=== PATIENT | female | born 1945 | race Hispanic/Latino ===

== ENCOUNTER 2019-01-22 10:39 | Emergency (ER) | payer OTHER ==
[2019-01-22] MEDS ORDERED: dexAMETHasone 10 MG/ML VIAL ONE (10:54)
[2019-01-22] MEDS ORDERED: ONDANSETRON 4 MG/2 ML VIAL ONE (10:54)
[2019-01-22] MEDS ORDERED: MORPHINE 4 MG/ML SYR ONE (10:54)
[2019-01-22] MEDS ORDERED: NA CHLORIDE 0.9% 500 ML ONE (10:54)
[2019-01-22 11:23] LABS: Absolute Lymphocytes (CBC) 1.5 K/uL (0.7-4.9); Basophils % 0.4 % (0-1.3); Hematocrit 35.4 % (36.0-45.0); Lymphocytes % 28.6 % (15.3-44.8); MPV 10.2 fL (7.6-11.3); RBC Red Blood Cell Count 4.03 M/uL (3.86-4.86)
[2019-01-22 11:31] LABS: Albumin 4.2 g/dL (3.4-5.0); Bilirubin Direct 0.2 mg/dL (0-0.2); Bilirubin Total 0.5 mg/dL (0.2-1.0); Potassium 3.5 mmol/L (3.5-5.1); Protein, Total 8.5 g/dL (6.4-8.2)
--- NOTE | 2019-01-22 12:05 | RAD REPORT ---
EXAM DESCRIPTION: CT - Angio Aorta For Dissection - 01/22/2019 11:52 am CLINICAL HISTORY: Chest pain radiating to the back. bilateral flank pain COMPARISON: No comparisons TECHNIQUE: CT angiography of the aorta was performed with MIPs. All CT scans are performed using dose optimization technique as appropriate and may include automated exposure control or mA/KV adjustment according to patient size. FINDINGS: A left aortic arch is present with normal branching pattern of the great vessels.No acute aortic finding is seen such as aneurysm, penetrating ulcer or dissection. The celiac axis, SMA, BARBARA and renal arteries are widely patent. No evidence of pulmonary embolism. The lungs are mildly emphysematous but clear. Moderate hiatal hernia. Mild diffuse fatty liver.The spleen, pancreas, adrenal glands and kidneys are within normal limits fo r arterial phase imaging. No bowel obstruction, free fluid or abscess.No pathologic enlarged lymphadenopathy identified. Moderate degenerative anterolisthesis L4 on 5. IMPRESSION: No acute aortic finding is demonstrated.
--- NOTE | 2019-01-22 12:15 | ER ---
Nurse's Notes [facility] Name: Kely Smith Age: 73 yrs Sex: Female : 1945 Arrival Date: 01/22/2019 Time: 10:40 Bed 2 Private MD: Diagnosis: Radiculopathy, lumbosacral region;Zoster [herpes zoster] Presentation: 01/22 10:43 Presenting complaint: Patient states: Pain for 2-3 days on back radiating around the la1 right flank area. Transition of care: patient was not received from another setting of care. Onset of symptoms was January 22, 2019. Risk Assessment: Do you want to hurt yourself or someone else? Patient reports no desire to harm self or others. Initial Sepsis Screen: Does the patient have a suspected source of infection?. Care prior to arrival: None. 10:43 Acuity: SALAS 2 la1 10:43 Method Of Arrival: Wheelchair la1 Historical: - Allergies: 10:43 No Known Allergies; la1 - PMHx: 10:43 Diabetes - NIDDM; Hypertension; High Cholesterol; la1 10:50 Atrial Fib; ch - Immunization history:: Adult Immunizations up to date. - Social history:: Smoking status: Patient/guardian denies using tobacco. - Ebola Screening: : No symptoms or risks identified at this time. - Family history:: not pertinent. - Hospitalizations: : No recent hospitalization is reported. Screenin:50 Abuse screen: Denies threats or abuse. Denies injuries from another. Nutritional jl7 screening: No deficits noted. Tuberculosis screening: No symptoms or risk factors identified. Fall Risk IV access (20 points). Total Vital Fall Scale indicates No Risk (0-24 pts). Assessment: 10:50 General: Appears in no apparent distress. uncomfortable, Behavior is cooperative, jl7 anxious. Pain: Complains of pain in left mid back Pain radiates to left leg Pain currently is 10 out of 10 on a pain scale. Quality of pain is described as radiating, sharp, shooting, Pain began 2-3 days ago. Is continuous. Pain: Complains of pain in right upper quadrant and left upper quadrant Pain does not radiate. Pain currently is 10 out of 10 on a pain scale. Quality of pain is described as pressure, Pain began suddenly, Is continuous. Neuro: Level of Consciousness is awake, alert, obeys commands, Oriented to person, place, time, situation. Neuro: Cardiovascular: Denies chest pain, shortness of breath, Patient's skin is warm and dry. Rhythm is irregular. Respiratory: Airway is patent Respiratory effort is even, unlabored, Respiratory pattern is regular, symmetrical. GI: Abdomen is round non-distended, Bowel sounds present X 4 quads. Abd is soft and non tender X 4 quads. Derm: Skin is pink, warm \T\ dry. Musculoskeletal: Reports pain in left leg and left mid back. 11:20 Reassessment: Patient is alert, oriented x 3, equal unlabored respirations, skin jl7 warm/dry/pink. Patient states feeling better. Patient states symptoms have improved. Pain: Complains of pain in left leg and left mid back Pain currently is 6 out of 10 on a pain scale. Pain: Complains of pain in right upper quadrant and left upper quadrant Pain currently is 0 out of 10 on a pain scale. 12:20 Reassessment: Dr. Riley at bedside discussing results and plan of care. jl7 Vital Signs: 10:42 Pulse 160; Resp 22; Temp 97.6; Pulse Ox 100% on R/A; Weight 72.57 kg; la1 10:43 BP 160 / 130; la1 10:50 BP 140 / 101; Pulse 165; Resp 22 S; Pulse Ox 98% on R/A; Pain 10/10; jl7 11:07 BP 145 / 85 LA; Pulse 107; Resp 19 S; Pulse Ox 98% on R/A; Pain 9/10; jl7 11:40 BP 151 / 69; Pulse 100; Resp 17 S; Pulse Ox 99% on R/A; Pain 6/10; jl7 12:30 BP 149 / 70; Pulse 101; Resp 19 S; Pulse Ox 100% on R/A; jl7 ED Course: 10:40 Patient arrived in ED. as 10:43 Triage completed. la1 10:43 Arm band placed on left wrist. la1 10:47 Chauncey Riley MD is Attending Physician. rn 10:48 Yisel Huff RN is Primary Nurse. jl7 10:50 Patient has correct armband on for positive identification. Placed in gown. Bed in low jl7 position. Call light in reach. Side rails up X 1. monitor tech on. Pulse ox on. NIBP on. Warm blanket given. 10:56 Inserted saline lock: 20 gauge in right antecubital area, using aseptic technique. jl7 Blood collected. 10:56 EKG done, by ED staff, reviewed by Chauncey Riley MD. em1 10:56 Initial lab(s) drawn, by me, sent to lab. jl7 11:00 Radiology exam delayed due to lab results not completed at this time. (BUN/Creatinine). kw1 11:48 CT completed. Patient tolerated procedure well. Patient moved back from CT. bq 11:52 CT Aorta for Dissection In Process Unspecified. EDMS 12:40 No provider procedures requiring assistance completed. IV discontinued, intact, jl7 bleeding controlled, No redness/swelling at site. Pressure dressing applied. Administered Medications: 11:00 Drug: Zofran 4 mg Route: IVP; Site: right antecubital; jl7 11:17 Follow up: Response: No adverse reaction jl7 11:02 Drug: morphine 4 mg Route: IVP; Site: right antecubital; jl7 11:17 Follow up: Response: No adverse reaction; Pain is decreased jl7 11:04 Drug: Decadron - Dexamethasone 10 mg Route: IVP; Site: right antecubital; jl7 11:19 Follow up: Response: No adverse reaction jl7 11:05 Drug: NS 0.9% 500 ml Route: IV; Rate: bolus; Site: right antecubital; jl7 11:40 Follow up: IV Status: Completed infusion; IV Intake: 500ml jl7 Intake: 11:40 IV: 500ml; Total: 500ml. jl7 Outcome: 12:14 Discharge ordered by . rn 12:40 Discharged to home ambulatory. jl7 12:40 Condition: stable 12:40 Discharge instructions given to patient, family, Instructed on discharge instructions, follow up and referral plans. medication usage, Demonstrated understanding of instructions, follow-up care, medications, Prescriptions given X 3. 13:27 Patient left the ED. jl7 Signatures: Dispatcher [employer] EDMS Mariel Yaun, Magalie Paredes RN, ch, Amelia as Nieto, Roman, MD MD rn Martinez, Eric em1 Ian Estrada RN RN la1 Leal, Jahala, RN RN jl7 Judy Malik kw1 Corrections: (The following items were deleted from the chart) 11:09 10:50 Initial lab(s) drawn, by me, sent to lab. [email or web address] [email or web address]
--- NOTE | 2019-01-22 12:16 | EDPHYS ---
Physician Documentation [facility] Name: Kely Smith Age: 73 yrs Sex: Female : 1945 Arrival Date: 01/22/2019 Time: 10:40 Bed 2 Private MD: ED Physician Chauncey Riley HPI: 01/22 10:55 This 73 yrs old Female presents to ER via Wheelchair with complaints of rn Sciatica. 10:55 The patient complains of pain in the left mid back and right mid back. The pain rn radiates to the left leg. 10:55 Onset: The symptoms/episode began/occurred 3 day(s) ago. Modifying factors: The rn symptoms are alleviated by nothing. the symptoms are aggravated by movement, palpation/percussion. Severity of pain: At its worst the pain was moderate in the emergency department the pain is unchanged. The patient has experienced similar episodes in the past. REports bilateral flank pain, began 3 days ago, noticed bumps to right flank and sharp pain that radiates around to right abdomen and stops at midline. Thinks is shingles. Reports left flank that radiates down left leg identical to previous sciatica in past. Reports hx of afib and not sure if took her medication this AM.. Historical: - Allergies: 10:43 No Known Allergies; la1 - PMHx: 10:43 Diabetes - NIDDM; Hypertension; High Cholesterol; la1 10:50 Atrial Fib; ch - Immunization history:: Adult Immunizations up to date. - Social history:: Smoking status: Patient/guardian denies using tobacco. - Ebola Screening: : No symptoms or risks identified at this time. - Family history:: not pertinent. - Hospitalizations: : No recent hospitalization is reported. ROS: 10:55 Constitutional: Negative for fever, chills, and weight loss, Eyes: Negative for injury, rn pain, redness, and discharge, Neck: Negative for injury, pain, and swelling, Cardiovascular: Negative for chest pain, palpitations, and edema, Respiratory: Negative for shortness of breath, cough, wheezing, and pleuritic chest pain, Abdomen/GI: Negative for diarrhea, and constipation, Back: + bilateral flank pain : Negative for injury, bleeding, discharge, and swelling, MS/Extremity: Negative for injury and deformity, Skin: Negative for injury, rash, and discoloration, Neuro: Negative for headache, weakness, numbness, tingling, and seizure. Exam: 10:55 Constitutional: Overweight female, appears uncomfortable. Head/Face: Normocephalic, rn atraumatic. Neck: Trachea midline, no thyromegaly or masses palpated, and no cervical lymphadenopathy. Supple, full range of motion without nuchal rigidity, or vertebral point tenderness. No Meningismus. Cardiovascular: Tachycardic, irregular, no murmur Respiratory: + mild tachypnea, no retractions Abdomen/GI: soft, non-tender Back: No spinal tenderness. Painful ROM with back movement. A few pustular lesions right mid/upper lumbar region, no lesions around right lateral or anterior distribution. No fluctuance or abscess. MS/ Extremity: Pulses equal, no cyanosis. Neurovascular intact. Full, normal range of motion. Equal circumference. Neuro: Awake and alert, GCS 15, oriented to person, place, time, and situation. Cranial nerves II-XII grossly intact. Motor strength 5/5 in all extremities. Sensory grossly intact. 11:13 ECG was reviewed by the Attending Physician. rn Vital Signs: 10:42 Pulse 160; Resp 22; Temp 97.6; Pulse Ox 100% on R/A; Weight 72.57 kg; la1 10:43 BP 160 / 130; la1 10:50 BP 140 / 101; Pulse 165; Resp 22 S; Pulse Ox 98% on R/A; Pain 10/10; jl7 11:07 BP 145 / 85 LA; Pulse 107; Resp 19 S; Pulse Ox 98% on R/A; Pain 9/10; jl7 11:40 BP 151 / 69; Pulse 100; Resp 17 S; Pulse Ox 99% on R/A; Pain 6/10; jl7 12:30 BP 149 / 70; Pulse 101; Resp 19 S; Pulse Ox 100% on R/A; jl7 MDM: 10:47 Patient medically screened. rn 12:13 Differential diagnosis: nephrolithiasis, diverticulitis, ruptured AAA, dissecting AAA, rn shinchristopher, radiculopathy. Data reviewed: vital signs, nurses notes, lab test result(s), radiologic studies, CT scan, and as a result, I will discharge patient. Counseling: I had a detailed discussion with the patient and/or guardian regarding: the historical points, exam findings, and any diagnostic results supporting the discharge/admit diagnosis, lab results, radiology results, the need for outpatient follow up, to return to the emergency department if symptoms worsen or persist or if there are any questions or concerns that arise at home. Response to treatment: the patient's symptoms have markedly improved after treatment, and as a result, I will discharge patient. Special discussion: I discussed with the patient/guardian in detail that at this point there is no indication for admission to the hospital. It is understood, however, that if the symptoms persist or worsen the patient needs to return immediately for re-evaluation. ED course: No acute findings on CT aorta, will dc home as feels better. Will treat with steroids for sciatica and possible shingles along with prn pain medication and acyclovir.. 01/22 10:54 Order name: Basic Metabolic Panel; Complete Time: 11:37 rn 01/22 10:54 Order name: CBC with Diff; Complete Time: 11: rn 01/22 10:54 Order name: Creatinine for Radiology; Complete Time: 11:37 rn 01/22 10:54 Order name: Hepatic Function; Complete Time: 11:37 rn 01/22 10:54 Order name: Lipase; Complete Time: 11:37 rn 01/22 10:54 Order name: CT Aorta for Dissection; Complete Time: 12:12 rn 01/22 10:54 Order name: IV Saline Lock; Complete Time: 11:14 rn 01/22 10:54 Order name: Labs collected and sent; Complete Time: 11:14 rn 01/22 10:54 Order name: EKG; Complete Time: 10:55 rn 01/22 10:54 Order name: EKG - Nurse/Tech; Complete Time: 10:56 rn EC:13 Rate is 156 beats/min. Rhythm is irregularly irregular. QRS [place] is Normal. [place] interval rn is normal. QRS interval is normal. QT interval is normal. No Q waves. T waves are Normal. No ST changes noted. Clinical impression: Atrial Fibrillation. Interpreted by me. Reviewed by me. Administered Medications: 11:00 Drug: Zofran 4 mg Route: IVP; Site: right antecubital; jl7 11:17 Follow up: Response: No adverse reaction jl7 11:02 Drug: morphine 4 mg Route: IVP; Site: right antecubital; jl7 11:17 Follow up: Response: No adverse reaction; Pain is decreased jl7 11:04 Drug: Decadron - Dexamethasone 10 mg Route: IVP; Site: right antecubital; 7 11:19 Follow up: Response: No adverse reaction 7 11:05 Drug: NS 0.9% 500 ml Route: IV; Rate: bolus; Site: right antecubital; jl7 11:40 Follow up: IV Status: Completed infusion; IV Intake: 500ml [facility] Disposition: 01/22/19 12:14 Discharged to Home. Impression: Radiculopathy, lumbosacral region, Zoster [herpes zoster]. - Condition is Stable. - Discharge Instructions: Lumbosacral Radiculopathy, Shingles. - Prescriptions for Tylenol- Codeine #3 300-30 mg Oral Tablet - take 2 tablets by ORAL route every 6 hours As needed; 20 tablet. Acyclovir 800 mg Oral Tablet - take 1 tablet by ORAL route 5 times per day for 10 days; 50 tablet. Medrol (Zack) 4 mg Oral Tablets, Dose Pack - take 1 tablet by ORAL route as directed - follow package instructions; 1 packet. - Medication Reconciliation Form, Thank You Letter, Antibiotic Education, Prescription Opioid Use form. - Follow up: Private Physician; When: As needed; Reason: Recheck today's complaints, Re-evaluation by your physician. - Problem is new. - Symptoms have improved. Signatures: Dispatcher [employer] EDMS Mariel Yuan RN RN ch Nieto, Roman, MD MD rn Attema, Lee RN TIFFANY la1 Yisel Huff RN RN jl7 Corrections: (The following items were deleted from the chart) 13:27 12:14 01/22/2019 12:14 Discharged to Home. Impression: Radiculopathy, lumbosacral jl7 region; Zoster [herpes zoster]. Condition is Stable. Forms are Medication Reconciliation Form, Thank You Letter, Antibiotic Education, Prescription Opioid Use. Follow up: Private Physician; When: As needed; Reason: Recheck today's complaints, Re-evaluation by your physician. Problem is new. Symptoms have improved. rn
[2019-01-22 13:35] VITALS: TEMP 97.6
[2019-01-22 13:41] VITALS: BP 149/70; O2SAT 100
--- NOTE | 2019-01-23 05:23 | EKG ---
Test Date: 2019-01-22 Test Time: 11:48:22 Lead C Developer: FARZANA MEASUREMENT RESULTS: Intervals: Rate: 156 SD: QRSD: 72 QT: 268 QTc: 431 [place]: P: SD: QRS: 26 T: 2 INTERPRETIVE STATEMENTS: Atrial fibrillation with rapid ventricular response Nonspecific ST abnormality Abnormal ECG Compared to ECG 02/24/2008 06:35:20 ST (T wave) deviation now present Sinus rhythm no longer present Electronically Signed On 01-23-19 05:22:44 [employer] by Misael More
== END 2019-01-22 13:27 | disposition home or self-care (01) ==
LOC: ER 10:39
DX: M54.17 Radiculopathy, lumbosacral region (principal); B02.9 Zoster without complications
CPT/HCPCS: 96361; 93005; 85025; 80048; 36415; 80076; 83690; 71275; 74175; 96375; 96374; 99285; Q9967; J1100; J7040; J2405